=== PATIENT | female | born 1960 | race Caucasian/White ===

== ENCOUNTER 2022-10-13 09:11 | Outpatient (AMB) | payer OTHER, SELFPAY ==
--- NOTE | 2022-10-13 09:16 | AM.OFFWIN_ITS ---
Intake Vital Signs 10/13/22 09:20 Height 5 ft 3 in BP 132/76 Blood Pressure Location Rt brachial Position Sitting Pulse 76 Pulse Source Pulse Oximeter Temp 98.0 F Temp Source Oral Pulse Oximetry (%) 97 Oxygen Delivery Method Room Air Intake Visit Reasons: [employer]/right foot pain Intake Note: pt is here for right foot pain Patient Tobacco Use Status: Former Tobacco user Allergies amoxicillin [Augmentin] Allergy (Unknown, Verified 10/13/22 09:16) nausea and vomiting clavulanic acid [Augmentin] Allergy (Unknown, Verified 10/13/22 09:16) nausea and vomiting Sulfa (Sulfonamide Antibiotics) Allergy (Unknown, Verified 10/13/22 09:16) blister Do you need a note to return to daycare/school/sports/work: Yes HPI HPI Comments History of Present Illness Details This is a 62-year-old female who presents to the office today for sick visit. Patient complaining of right foot pain. Patient states she turned quickly last night and felt as though she stepped on something. She states she looked at her foot and what her shoe and did not find any foreign bodies. The area became erythematous and edematous. Patient states she iced and elevated the leg last night in the swelling has significantly improved. She denies any numbness/weakness/paresthesias of the extremities. Patient otherwise feeling well. [facility] Social History Patient Tobacco Use Status: Former Tobacco user Review of Systems Const All systems reviewed & are unremarkable except as noted in HPI and below Reports no additional complaints Eyes Reports no additional complaints ENT Reports no additional complaints Card Reports no additional complaints Resp Reports no additional complaints GI Reports no additional complaints Musc Reports no additional complaints and Reports as per HPI Skin/Breast Reports system reviewed and no additional complaints, except as documented Neuro Reports no additional complaints Psych Reports no additional complaints Endo Reports no additional complaints Broderick/Lymph Reports no additional complaints Aller/Immun Reports no additional complaints Physical Exam Vital Signs: Last Vital Signs Temp 98.0 F 10/13/22 09:20 Pulse 76 10/13/22 09:20 BP 132/76 10/13/22 09:20 Pulse Ox 97 10/13/22 09:20 Oxygen Delivery Method Room Air 10/13/22 09:20 Const General: cooperative, healthy appearing, no acute distress and well developed Orientation/consciousness: patient oriented x3 HEENT Head: Yes normal to inspection Ears: hearing grossly normal bilaterally General nose exam: Normal external nose present Face and sinus: Yes normal facial exam Mouth: Normal oral and palatal mucosa present Eyes General: appearance normal, both eyes and all related structures Pupils: Equal, round and reactive pupils present EOM: EOMs intact bilaterally Resp Effort & Inspection: normal respiratory effort and no respiratory distress Auscultation: clear to auscultation bilaterally Cardio Rate: regular rate Rhythm: regular rhythm Heart sounds: no gallops, no murmurs and no rubs Peripheral pulses: Peripheral pulses 2+ throughout GI Inspection: No distended Palpation (GI): Soft to palpation and nontender Auscultation: normal bowel sounds Skin General skin exam: no rashes or lesions noted Neuro General: patient oriented x3 Cranial nerves: Yes CN's II-XII intact bilaterally and Yes Equal, round and reactive pupils present Gait exam (Neuro): Normal gait present Motor exam (neuro): 5/5 motor strength present throughout Extrem Other: Full range of motion of the right foot and ankle. There is mild tenderness to palpation just inferior to the lateral malleolus with some mild erythema and edema. No tenderness to palpation of the base/head of the 5th metatarsal. No fibular tenderness to palpation. No ecchymosis noted. General: Yes normal to inspection, Yes full ROM and Yes no clubbing, cyanosis or edema Psych Appearance: grossly normal Mental Status: mental status grossly normal Assessment & Plan Assessment & Plan (1) Right foot pain: Code(s): M79.671 - Pain in right foot Plan: This is a 62-year-old female who presents to the office today complaining of right foot pain after she quickly turned and pivoted last night. History and physical most consistent with a mild right lateral ankle sprain versus contusion of the right lateral foot. Check x-ray of the right foot to rule out foreign body versus fracture. Otherwise, recommend rest/activity modification, ice to the area, and elevation of the extremity. Continue with acetaminophen/ibuprofen for pain management as long as patient has no medical contraindications. Patient verbalized understanding and is agreeable with the plan. Orders: Orders XR foot RT 2V Today M79.673 - Pain in unspecified foot Coding Level of Care Code New Pt Level 3 (69290) Diagnoses Right foot pain M79.671
[2022-10-13 09:20] VITALS: BP 132/76; PULSE 76; TEMP 36.7; O2SAT 97
== END 2022-10-13 10:02 | disposition home or self-care (01) ==
PROVIDERS: Visit Provider Physician Assistant Medical
DX: M79.671 Pain in right foot (principal)
CPT/HCPCS: 99051; 99203

== ENCOUNTER 2022-10-13 09:33 | Outpatient (REF) | payer OTHER, SELFPAY ==
--- NOTE | ~2022-10-13 | XR_ITS ---
EXAMINATION: XR FOOT, RIGHT CLINICAL INFORMATION: Pain COMPARISON: No prior imaging available at the time of dictation. TECHNIQUE: 3 views of the foot FINDINGS: No fracture or dislocation. Calcaneal spurring with mild degenerative changes of the first metatarsophalangeal joint with degenerative spurring. No joint effusion. Soft tissues are unremarkable. XR/XR foot RT min 3V IMPRESSION: Mild degenerative changes of the foot.
== END 2022-10-13 09:34 | disposition home or self-care (01) ==
LOC: HO.HMGCX 09:33
PROVIDERS: Visit Provider Physician Assistant Medical
DX: M79.671 Pain in right foot (principal)
CPT/HCPCS: 73630

== ENCOUNTER 2023-07-12 05:49 | Emergency (ER) | payer OTHER, SELFPAY ==
[2023-07-12 05:57] VITALS: BP 116/50; PULSE 77; RESP 18; TEMP 36.4; O2SAT 99; BMI 28.3
--- NOTE | 2023-07-12 07:00 | ED.EPISTAXIS ---
History of Present Illness General Chief Complaint: Epistaxis Stated Complaint: nose bleed Time Seen by Provider: 07/12/23 06:37 Source: patient Mode of arrival: ambulatory Limitations: no limitations History of Present Illness HPI Narrative: 63 yo female with history of CAD with stenting, HTN, HLD, SHANNAN on CPAP, GERD here with complaints nosebleed with waking. Had intermittent nosebleed yesterday and has history of same. Had sinus congestion/pain last week and did course of prednisone. on ASA 81mg daily. Denies injury or trauma. Related Data Home Medications ?Medication ?Instructions ?Recorded ?Confirmed amlodipine 10 mg tablet 10 mg PO DAILY 10/13/22 doxycycline hyclate 100 mg tablet 100 mg PO BID 10/13/22 nicotine (polacrilex) 4 mg gum mg PO Q2H PRN 10/13/22 nicotine 21 mg/24 hr daily 1 patch topical DAILY 10/13/22 transdermal patch rosuvastatin 40 mg tablet 40 mg PO DAILY 10/13/22 triamcinolone acetonide 0.1 % 1 appl topical BID-TID 10/13/22 topical cream Allergies Allergy/AdvReac Type Severity Reaction Status Date / Time amoxicillin [Augmentin] Allergy Unknown nausea and Verified 07/12/23 05:59 vomiting clavulanic acid [Augmentin] Allergy Unknown nausea and Verified 07/12/23 05:59 vomiting Sulfa (Sulfonamide Allergy Unknown blister Verified 07/12/23 05:59 Antibiotics) Review of Systems Review of Systems: Yes all other systems are reviewed and are negative Constitutional: Constitutional: Reports no additional constitutional complaints, Denies body ache(s), Denies chills, Denies fever(s), Denies headache(s) and Denies weakness Eyes: Eyes: Reports no additional eye complaints and Denies change in vision ENT: Reports system reviewed and no additional complaints, except as documented, Denies dizziness, Denies headache(s), Reports epistaxis, Denies nasal congestion, Denies nasal discharge and Denies neck pain Cardiovascular: Cardiovascular: Reports no additional cardiovascular complaints, Denies chest pain, Denies leg edema and Denies dyspnea Respiratory: Respiratory: Reports no additional respiratory complaints, Denies cough and Denies dyspnea Gastrointestinal: Gastrointestinal: Reports no additional gastrointestinal complaints, Denies abdominal pain, Denies diarrhea, Denies nausea and Denies vomiting Genitourinary: Genitourinary: Reports no additional female genitourinary complaints and Denies urinary incontinence Musculoskeletal: Musculoskeletal: Reports no additional musculoskeletal complaints, Denies back pain, Denies arthralgias, Denies joint swelling, Denies neck pain, Denies numbness and Denies tingling Integumentary/Breasts: Skin/Breast: Reports system reviewed and no additional complaints, except as docu and Denies rash Neurologic: Reports system reviewed and no additional complaints, except as documented, Denies Abnormal speech present, Denies dizziness, Denies headache(s), Denies numbness, Denies tingling and Denies weakness [facility] Past Medical History Attestation statement: The following information was validated with the patient. Source: old records reviewed and nursing notes reviewed Social History Social History Patient Tobacco Use Status: Former Tobacco user Smoked in Last 30 Days: No Advance Directives: No Advance Directives Information Provided: Yes Patient : No Physical Exam Vital Signs: Vital Signs: Last Vital Signs Temp 97.5 F 07/12/23 05:57 Pulse 77 07/12/23 05:57 Resp 18 07/12/23 05:57 BP 116/50 L 07/12/23 05:57 Pulse Ox 99 07/12/23 05:57 O2 Del Method Room Air 07/12/23 05:57 BMI result Body Mass Index 28.3 Const: General: cooperative, healthy appearing, comfortable and no acute distress Orientation/consciousness: patient oriented x3 Limitations: no limitations HEENT: Head: Yes normal to inspection Ears: hearing grossly normal bilaterally and TM's normal bilaterally General nose exam: Normal external nose present and Other nasal findings present (Dried blood-no active bleeding noted, bilateral nasal turbinate erythema) Face and sinus: Yes normal facial exam Mouth: Normal oral and palatal mucosa present Throat: Yes posterior oropharynx normal, Yes tonsils normal and Yes uvula midline Eyes: General: appearance normal, both eyes and all related structures Pupils: Equal, round and reactive pupils present Neck: Neck: Yes normal visual inspection, Yes full ROM, Yes no lymphadenopathy and Yes no meningeal signs Chest: Chest palpation & inspection: normal inspection of the chest Resp: Effort & Inspection: normal respiratory effort Auscultation: clear to auscultation bilaterally Cardio: Rate: regular rate Rhythm: regular rhythm Peripheral pulses: Peripheral pulses 2+ throughout GI: Inspection: Yes normal to inspection Palpation (GI): Soft to palpation and nontender Auscultation: normal bowel sounds Back/Spine/Pelvis: Thoracic/Lumbar Spine: thoracic and lumbar spine normal to inspection Skin: General skin exam: no rashes or lesions noted Neuro: General: patient oriented x3, no meningeal signs, no focal motor deficits and normal sensation to monofilament Cranial nerves: Yes Equal, round and reactive pupils present Cognition (Neuro): normal cognition Speech: No Abnormal speech present Gait exam (Neuro): Normal gait present Motor exam (neuro): 5/5 motor strength present throughout Extrem: General: Yes normal to inspection Course Course Course Narrative: Held in ED for 2 hrs with resolution of epistaxis. Will discharge home. Medications Administered Discontinued Medications Generic Name Dose Route Start Last Admin Trade Name Freq PRN Reason Stop Dose Admin Oxymetazoline HCl 2 spray 07/12/23 06:59 07/12/23 07:18 Oxymetazoline Hcl 0.05 % Nasal 15 Ml [place] NOSTRIL-B 07/12/23 07:00 2 spray ONCE ONE Administration Medical Decision Making Medical Decision Making [facility] Narrative: 63 yo female with history of CAD with stenting, HTN, HLD, SHANNAN on CPAP, GERD here with complaints nosebleed with waking. Had intermittent nosebleed yesterday and has history of same. Had sinus congestion/pain last week and did course of prednisone. on ASA 81mg daily. Denies injury or trauma. Dried blood-no active bleeding noted, bilateral nasal turbinate erythema VSS Afrin applied, will monitor Differential Diagnosis Differential Diagnoses: The differential diagnosis associated with the presentation includes epistaxis Admission/Observation Consideration of admission/observation: Escalation of care including admission/observation considered resolved with mild intervention, no need for urgent ENT consultation or transfer Independent Historian Clinical information obtained from an independent historian. History obtained from or confirmed by: Spouse Tests considered The following testing was considered but not selected: No injury or trauma to suggest need for CT imaging Discharge Plan Discharge Clinical Impression: Epistaxis Patient Disposition: Home, Self-Care Instructions: Nosebleed (ED) Additional Instructions: Apply saline nasal spray daily You may apply Vaseline at the entrance to your nares Buy a humidifier for your house Prescriptions: No Action rosuvastatin 40 mg tablet 40 mg PO DAILY amlodipine 10 mg tablet 10 mg PO DAILY nicotine (polacrilex) 4 mg gum PO Q2H PRN nicotine 21 mg/24 hr patch 24 hour 1 patch topical DAILY triamcinolone acetonide 0.1 % cream 1 appl topical BID-TID doxycycline hyclate 100 mg tablet 100 mg PO BID Referrals: Yesenia Sorensen PA [Primary Care Provider] - 5 days Print Language: Swazi
[2023-07-12] MEDS: Oxymetazoline HCl 0.05 % Nasal 15 ML SPRAY 2 SPRAY NOSTRIL-B (07:18)
[2023-07-12 08:19] VITALS: BP 116/50; PULSE 77; RESP 18; TEMP 36.4; O2SAT 99
== END 2023-07-12 08:20 | disposition home or self-care (01) ==
PROVIDERS: Emergency Provider Emergency Medicine; PCP Student in an Organized Health Care Education/Training Program
DX: R04.0 Epistaxis (principal); I10 Essential (primary) hypertension; Z79.82 Long term (current) use of aspirin
CPT/HCPCS: 96372; 99283; 99284

== ENCOUNTER 2023-09-13 12:48 | Outpatient (AMB) | payer OTHER, SELFPAY ==
[2023-09-13 12:49] VITALS: BP 120/72; PULSE 86; TEMP 36.7; O2SAT 98; BMI 29.8
--- NOTE | 2023-09-13 12:49 | MHC.OFFWIV ---
Intake Vital Signs 09/13/23 12:49 Height 5 ft 3 in Weight 168 lb BMI 29.8 BP 120/72 Blood Pressure Location Lt brachial Position Sitting Pulse 86 Pulse Source Pulse Oximeter Temp 98.0 F Temp Source Temporal Artery Scan Pulse Oximetry (%) 98 Oxygen Delivery Method Room Air Intake Visit Reasons: EP-L swollen ankle Intake Note: pt is here today for lft leg swollen started 2 weeks ago Patient Tobacco Use Status: Former Tobacco user Allergies amoxicillin [Augmentin] Allergy (Unknown, Verified 09/13/23 12:51) nausea and vomiting clavulanic acid [Augmentin] Allergy (Unknown, Verified 09/13/23 12:51) nausea and vomiting Sulfa (Sulfonamide Antibiotics) Allergy (Unknown, Verified 09/13/23 12:51) blister Do you need a note to return to daycare/school/sports/work: No HPI HPI Comments History of Present Illness Details Patient is a 63-year-old female complaining of a left the pain and swelling for weeks. She states she started taking line dancing and was wearing 1 particular kind of shoe and then changed her shoe and the 1st time she did line dancing with the new shoes with less support, she noticed her ankle was swollen and painful after her line dancing class. She denies any trauma during the class. She has not done anything to try to make the swelling go down but she said the pain has improved and it only hurts when she stands for long periods of time or walks a lot. She states it is better with rest. PFSH Social History Patient Tobacco Use Status: Former Tobacco user Review of Systems Const All systems reviewed & are unremarkable except as noted in HPI and below Physical Exam Vital Signs: Last Vital Signs Temp 98.0 F 09/13/23 12:49 Pulse 86 09/13/23 12:49 BP 120/72 09/13/23 12:49 Pulse Ox 98 09/13/23 12:49 Oxygen Delivery Method Room Air 09/13/23 12:49 BMI result Body Mass Index 29.8 Const General: cooperative, healthy appearing, comfortable, no acute distress and well developed Orientation/consciousness: patient oriented x3 Limitations: no limitations Eyes General: appearance normal, both eyes and all related structures Resp Effort & Inspection: normal respiratory effort and able to speak in complete sentences Neuro General: patient oriented x3 Extrem Left lower extremity: ankle Details: swelling and normal ROM; no tenderness, no warmth, no abrasions, no lacerations, no ecchymosis and achilles tendon exam normal Assessment & Plan Assessment & Plan (1) Sprain of anterior talofibular ligament of left ankle: Code(s): S93.492A - Sprain of other ligament of left ankle, initial encounter Qualifiers: Encounter type: initial encounter Qualified Code(s): S93.492A - Sprain of other ligament of left ankle, initial encounter Plan: Wrapped left ankle with Anil wrap, explained to use ibuprofen around the clock for the next 2-3 days and keep ankle wrapped as much as possible. After 2 or 3 days of an anti-inflammatory, she should use it only as needed to avoid kidney injury. Recommended keeping it wrapped for the next 2 weeks. If the sprain does not improve, she should follow up with her primary care doctor. Plan See above Coding Level of Care Code Est Pt Level 3 (33372) Diagnoses Sprain of anterior talofibular ligament of left ankle, initial encounter S93.492A Encounter type: initial encounter
== END 2023-09-13 15:45 | disposition home or self-care (01) ==
PROVIDERS: PCP Student in an Organized Health Care Education/Training Program; Visit Provider Physician Assistant
DX: S93.492A Sprain of other ligament of left ankle, initial encounter (principal)
CPT/HCPCS: 99213

== ENCOUNTER 2024-08-10 09:05 | Outpatient (RCR) | payer OTHER, SELFPAY ==
[2024-06-01 10:05] VITALS: BP 123/71; PULSE 70; O2SAT 99
== END 2024-08-10 10:13 | disposition home or self-care (01) ==
LOC: HO.PT 09:05
PROVIDERS: PCP Physician Assistant Medical; Visit Provider Physician Assistant
DX: M25.572 Pain in left ankle and joints of left foot (principal)
CPT/HCPCS: 97110; 97112; 97140; 97162; 97530